=== PATIENT | female | born 1995 | race Two or more races ===

== ENCOUNTER 2018-09-13 22:30 | Observation (INO) | payer MEDICAID, OTHER ==
[~2018-09-13] VITALS: Ht 162.6 cm; Wt 123.4 kg
== END 2018-09-13 23:35 | disposition home or self-care (01) | DRG 566 ==
LOC: LDRP 22:30
PROVIDERS: ADMIT Specialist; ATTEND Specialist
DX: O26.893 Other specified pregnancy related conditions, third trimester (principal); R10.9 Unspecified abdominal pain; Z3A.32 32 weeks gestation of pregnancy
CPT/HCPCS: 59025; 81002; G0378

== ENCOUNTER 2018-10-22 11:07 | Observation (INO) | payer MEDICAID ==
[2018-10-22] MEDS ORDERED: ALBUAER3 IN (12:40)
[2018-10-22] MEDS ORDERED: PREN-96 PO (12:40)
[2018-10-22 13:12] LABS: Basophils # (auto) 0 uL; Eosinophils # (auto) 0.1 uL; Red Cell Distribution Width 16.9 % (11.8-14.3)
[2018-10-22 13:17] LABS: Basophils % (auto) 0.3 % (0.0-2.0); Eosinophils % (auto) 0.7 % (0.0-7.0); Hematocrit 31.7 % (36.0-46.0); Hemoglobin 10.1 g/dL (12.2-16.2); Lymphocytes # (auto) 2.9 uL; Lymphocytes % (auto) 18.7 % (10.0-50.0); Mean Corpuscular Volume 75.1 fL (80.0-100.0); Monocytes # (auto) 0.7 uL; Monocytes % (auto) 4.8 % (0.0-12.0); Neutrophils # (auto) 11.7 uL; Neutrophils % (auto) 75.5 % (37.0-80.0); Platelet Count (auto) 321 10^3/uL (140-450); Red Blood Cells 4.22 10^6/uL (4.0-5.20); White Blood Cell 15.6 10^3/uL (4.4-10.8)
[2018-10-22 13:17] LABS: Urine Bacteria MANY /hpf (None Seen); Urine Blood Negative /uL (Negative); Urine Specific Gravity 1.003 (1.001-1.035); Urine WBC 12 /hpf (0 - 5)
[2018-10-22 13:25] LABS: Albumin 2.3 g/dL (3.4-5.0); Calcium 8.9 mg/dL (8.5-10.1); Potassium 3.9 mmol/L (3.5-5.1)
[2018-10-22 13:28] LABS: Bilirubin, Total 0.2 mg/dL (0.2-1.0); Total Protein 7.4 g/dL (6.4-8.2)
[2018-10-22 13:33] LABS: INR < 0.93 (0.9-1.15); Partial Thromboplastin Time 28.7 sec (23.64-32.05)
[2018-10-22 14:25] LABS: BUN/Creatinine Ratio 10.5
== END 2018-10-22 14:40 | disposition home or self-care (01) | DRG 566 ==
LOC: LDRP 11:07
PROVIDERS: ADMIT Obstetrics & Gynecology; ATTEND Obstetrics & Gynecology
DX: O13.3 Gestational [pregnancy-induced] hypertension without significant proteinuria, third trimester (principal); Z3A.37 37 weeks gestation of pregnancy
CPT/HCPCS: 36415; 59025; 76818; 80053; 81001; 81002; 84550; 85025; 85610; 85730; G0378

== ENCOUNTER 2018-10-25 12:00 | Observation (INO) | payer MEDICAID ==
[~2018-10-25 12:00] MED LIST: ALBUAER3 IN; PREN-96 PO
[2018-10-25 13:04] LABS: Protein, Urine 7.7 mg/dL (0.0-11.9)
[2018-10-25 13:12] LABS: Urine Bacteria FEW /hpf (None Seen); Urine Blood Negative /uL (Negative); Urine Specific Gravity 1.011 (1.001-1.035); Urine WBC 2 /hpf (0 - 5)
[2018-10-25 13:21] LABS: 24 Hr. Total Protein, Urine 115.5 mg/24 Hr (<149.1)
== END 2018-10-25 13:45 | disposition home or self-care (01) | DRG 566 ==
LOC: LDRP 12:00
PROVIDERS: ADMIT Obstetrics & Gynecology; ATTEND Obstetrics & Gynecology
DX: O26.893 Other specified pregnancy related conditions, third trimester (principal); H53.8 Other visual disturbances; R51 Headache; Z3A.37 37 weeks gestation of pregnancy
CPT/HCPCS: 59025; 81001; 81002; 84156; G0378

== ENCOUNTER 2018-10-29 09:55 | Observation (INO) | payer MEDICAID | END 2018-10-29 12:30 | disposition home or self-care (01) | DRG 566 | LOC: LDRP 09:55 | PROVIDERS: ADMIT Obstetrics & Gynecology; ATTEND Obstetrics & Gynecology | DX: O36.8130 Decreased fetal movements, third trimester, not applicable or unspecified (principal); J45.909 Unspecified asthma, uncomplicated; O99.513 Diseases of the respiratory system complicating pregnancy, third trimester; Z3A.38 38 weeks gestation of pregnancy | CPT/HCPCS: 59025; 76818; 81002; G0378 ==